=== PATIENT | female | born 1985 | race Caucasian/White ===

== ENCOUNTER 2019-02-11 06:11 | Inpatient (IN) | payer BC ==
[2019-02-11] VITALS (18 sets, daily range): BP systolic 114–143; BP diastolic 50–84; PULSE 61–99; TEMP 97–98.2
[~2019-02-11] VITALS: Ht 167.6 cm; Wt 94.1 kg
[~2019-02-11 06:11] MED LIST: ANUCORT HC25 M1 RC; ANUSOL-HC2.5% RC; COLACE 100100 MG/CAP PO; NO HOME MEDICATIONS; PHENERGAN 25 TA25 MG PO; PRENATAL1 TA1 PO
--- NOTE | 2019-02-11 06:20 | NUR ---
Patient arrives ambulatory with spouse for scheduled repeat . Patient denies ROM, vaginal bleeding, contractions, and reports normal movement. Changes into gown, EFM Explained and placed. VS obtained. Plan of care reviewed, patient denies questions. 0635- IV started and labs obtained. LR infusing preop. Consents explained and signed. Denies questions. 0710- Patient off EFM to use restroom and head to OR. See intraoperative report.
[2019-02-11] MEDS ORDERED: PROTONIX 40MG T40 MG PO (06:45)
[2019-02-11] MEDS ORDERED: ZOLOFT 50MG50 MG PO (06:45)
[2019-02-11] MEDS ORDERED: ZYRTEC10MGSGL (06:45)
[2019-02-11] MEDS ORDERED: PRENATAL (06:46)
[2019-02-11] MEDS ORDERED: FERRETTS I40 MG/15 M PO (06:46)
[2019-02-11 06:59] LABS: BASO % 0.6 % (0.0-2.0); EOS # 0.1 (0.0-0.7); EOS % 1.4 % (0-4.0); GRAN # 5.6 (1.4-6.5); GRAN % 77.5 % (42.2-75.2); HEMOGLOBIN 11.6 g/dl (12.5-16.0); LYMPH # 0.8 (1.2-3.4); LYMPH % 10.7 % (20.0-51.0); MEAN CELL VOLUME 102 fl (80.0-100.0); MEAN CORPUSCULAR HEMOGLOBIN 35 pg (27.0-31.0); MEAN CORPUSCULAR HGB CONC 35 g/dl (33.0-37.0); MEAN PLATELET VOLUME 10.9 fl (7.4-10.4); MONO # 0.6 (0.1-0.6); MONO % 8.6 % (1.7-9.3); PLATELET COUNT 180 K/mm3 (130-400); RED BLOOD COUNT 3.29 M/mm3 (4.10-5.30); REDCELL DISTRIBUTION WIDTH-CV 13.2 % (11.5-14.5)
[2019-02-11 07:05] LABS: HEMATOCRIT 33.5 % (37.0-47.0)
[2019-02-11] MEDS ORDERED: PERCOCET 325 MG1 TA2 PO (08:24)
[2019-02-11] MEDS ORDERED: MOTRIN 800800 MG/TAB PO (08:24)
[2019-02-12 01:00] VITALS: BP 134/60; PULSE 74; TEMP 97.8
[2019-02-12 09:29] VITALS: BP 153/73; PULSE 82
[2019-02-12 17:12] VITALS: BP 125/76; PULSE 74
[2019-02-12 21:10] VITALS: BP 131/74; PULSE 81; TEMP 98.6
[2019-02-13 08:00] VITALS: BP 122/75; PULSE 77; TEMP 98
--- NOTE | 2019-02-13 12:45 | NUR ---
Discharge instructions given, pt verbalizes understanding. No further questions noted. Bands matched and hugs tag removed. Pt has follow up appointments already scheduled.
== END 2019-02-13 12:55 | disposition home or self-care (01) | DRG 788 ==
LOC: OB 06:11 → LDR 10:40 → OB 02-13 12:55
PROVIDERS: ADMIT Obstetrics & Gynecology
PROC: 10D00Z1 Extraction of Products of Conception, Low, Open Approach (ICD-10-PCS; principal; 2019-02-11)
DX: O34.211 Maternal care for low transverse scar from previous cesarean delivery (principal); O99.344 Other mental disorders complicating childbirth; F32.9 Major depressive disorder, single episode, unspecified; O99.613 Diseases of the digestive system complicating pregnancy, third trimester; K21.9 Gastro-esophageal reflux disease without esophagitis; O69.1XX0 Labor and delivery complicated by cord around neck, with compression, not applicable or unspecified; Z3A.39 39 weeks gestation of pregnancy; Z37.0 Single live birth
CPT/HCPCS: J0690; J1885; J2370; J2405; J2590; J3010; J7120

== ENCOUNTER → 2023-10-07 | Outpatient (CLI) | payer BC ==
[~2023-10-07] MED LIST changes: +FERRETTS I40 MG/15 M PO; +MOTRIN 800800 MG/TAB PO; +PERCOCET 325 MG1 TA2 PO; +PRENATAL; +PROTONIX 40MG T40 MG PO; +ZOLOFT 50MG50 MG PO; +ZYRTEC10MGSGL
== END ==
LOC: MC.RAD 06:57
DX: Z12.31 Encounter for screening mammogram for malignant neoplasm of breast (principal)

== ENCOUNTER 2024-01-10 22:08 | Emergency (ER) | payer BC ==
[~2024-01-10] VITALS: Ht 165.1 cm; Wt 100.0 kg
[2024-01-10 22:19] VITALS: TEMP 97.5
[2024-01-10] MEDS ORDERED: NS 1,000 ML IV ONE (23:45)
[2024-01-10] MEDS ORDERED: Ketorolac 15 MG/ML VIAL IV ONE (23:45)
[2024-01-11 00:04] LABS: BASO # 0.1 K/mm3 (0.0-0.2); BASO % 0.7 % (0.0-2.0); EOS # 0.3 K/mm3 (0.0-0.7); EOS % 2.5 % (0.0-4.0); GRAN % 65.3 % (42.2-75.2); HEMOGLOBIN 13.8 g/dl (12.5-16.0); LYMPH # 2.9 K/mm3 (1.2-3.4); LYMPH % 23.5 % (20.0-51.0); MEAN CELL VOLUME 105 fl (80.0-100.0); MEAN CORPUSCULAR HEMOGLOBIN 34 pg (27-31); MEAN CORPUSCULAR HGB CONC 33 g/dl (33.0-37.0); MEAN PLATELET VOLUME 10.4 fl (7.4-10.4); MONO # 0.9 K/mm3 (0.1-0.6); MONO % 7.3 % (1.7-9.3); PLATELET COUNT 222 K/mm3 (130-400); RED BLOOD COUNT 4.02 M/mm3 (4.10-5.30); REDCELL DISTRIBUTION WIDTH-CV 12.1 % (11.5-14.5)
[2024-01-11 00:20] LABS: ALBUMIN 3.5 g/dL (3.5-5.0); BILIRUBIN,TOTAL 0.3 mg/dL (0.2-1.2); CALCIUM 10.2 mg/dL (8.4-10.2); CREATININE, serum 1.03 mg/dL (0.57-1.11); TOTAL PROTEIN 6.4 g/dl (6.2-8.1)
[2024-01-11 01:30] VITALS: BP 121/74; PULSE 56
== END 2024-01-11 01:30 | disposition home or self-care (01) ==
LOC: COL.ER 22:08
PROVIDERS: Emergency Medicine
DX: G43.909 Migraine, unspecified, not intractable, without status migrainosus (principal)
CPT/HCPCS: J1885; J7030